=== PATIENT | female | born 1995 | race Caucasian/White ===

== ENCOUNTER 2021-01-02 23:40 | Emergency (ER) | payer OTHER ==
[~2021-01-02] VITALS: Ht 167.6 cm; Wt 64.3 kg
[2021-01-03] MEDS ORDERED: OXAZEPAM 15 MG CAP PO ONE (06:30)
[2021-01-03] MEDS ORDERED: ONDANSETRON 4 MG ORAL DISINTEGRATING TAB PO ONE (06:30)
[2021-01-03] MEDS ORDERED: ONDA4TAB6 PO (07:39)
[2021-01-03] MEDS ORDERED: OXAZ30CA2 PO (07:39)
[2021-01-03 08:02] VITALS: BP 120/67
== END 2021-01-03 08:04 | disposition home or self-care (01) ==
LOC: M ED 23:40
DX: F10.239 Alcohol dependence with withdrawal, unspecified (principal)
CPT/HCPCS: 99283; Q0162